=== PATIENT | female | born 1975 | race African-American/Black ===

== ENCOUNTER 2018-03-15 08:25 | Emergency (ER) | payer OTHER ==
[~2018-03-15] VITALS: Ht 165.1 cm; Wt 125.0 kg
[~2018-03-15 08:25] MED LIST: FERR1TAB45 PO; VITAD1000 PO
[2018-03-15] MEDS ORDERED: ACETAMINOPHEN 500 MG TABLET PO ONE (09:30)
[2018-03-15] MEDS ORDERED: BENZOCAINE/MENTHOL LOZENGE PO ONE (09:30)
[2018-03-15] MEDS ORDERED: BENZONATATE 100 MG CAPSULE PO ONE (09:30)
[2018-03-15] MEDS ORDERED: ALBUTEROL SULFATE HFA 90 MCG/PUFF 8 GM INHALER IH ONE (09:30)
[2018-03-15] MEDS ORDERED: AmLODIPine BESYLATE 5 MG TABLET PO ONE (09:30)
[2018-03-15 10:21] VITALS: BP 122/71
== END 2018-03-15 10:23 | disposition home or self-care (01) ==
LOC: EMS 09:09
DX: J06.9 Acute upper respiratory infection, unspecified (principal); J34.89 Other specified disorders of nose and nasal sinuses; R51 Headache; Z88.6 Allergy status to analgesic agent
CPT/HCPCS: 94640; J3535

== ENCOUNTER 2019-04-20 07:59 | Emergency (ER) | payer OTHER ==
[~2019-04-20] VITALS: Ht 165.1 cm; Wt 118.2 kg
[2019-04-20] MEDS ORDERED: SULF1TAB42 PO (08:21)
[2019-04-20 09:30] VITALS: BP 107/74
[2019-04-20] MEDS ORDERED: ALBUTEROL SULFATE HFA 90 MCG/PUFF 8 GM INHALER IH ONE (09:45)
[2019-04-20] MEDS ORDERED: AZITHROMYCIN 250 MG TABLET PO ONE (09:45)
[2019-04-20] MEDS ORDERED: PredniSONE 20 MG TABLET PO ONE (09:45)
== END 2019-04-20 10:28 | disposition home or self-care (01) ==
LOC: EMS 08:00
DX: J45.909 Unspecified asthma, uncomplicated (principal); Z88.8 Allergy status to other drugs, medicaments and biological substances
CPT/HCPCS: 71046; 94640; 99283; J7512; J3535

== ENCOUNTER 2020-07-03 18:09 | Emergency (ER) | payer OTHER ==
[~2020-07-03] VITALS: Ht 165.1 cm; Wt 140.9 kg
[~2020-07-03 18:09] MED LIST changes: -FERR1TAB45 PO; +SULF1TAB42 PO; -VITAD1000 PO
[2020-07-03 19:22] LABS: BASOPHILS % (AUTO) 0.3 % (0.0-2.0); EOSINOPHILS % (AUTO) 2.6 % (1.0-6.0); HEMATOCRIT 42.6 % (36-46); HEMOGLOBIN 13.7 g/dL (12.0-16.0); LYMPHOCYTES # (AUTO) 1.6 K/uL (1.0-4.8); LYMPHOCYTES % (AUTO) 23.2 % (22.0-44.0); MEAN CORPUSCULAR HEMOGLOBIN 29.7 pg (26.0-34.0); MEAN CORPUSCULAR HGB CONC 32.1 G/dL (31.0-37.0); MEAN CORPUSCULAR VOLUME 93 fL (80-100); MONOCYTES # (AUTO) 0.8 K/uL (0.1-1.0); MONOCYTES % (AUTO) 11.4 % (2.0-9.0); NEUTROPHILS # (AUTO) 4.2 K/uL (1.8-7.7); NEUTROPHILS % (AUTO) 62.5 % (40.0-70.0); PLATELET COUNT (AUTO) 304 K/uL (150-450); RED BLOOD CELL COUNT(AUTO) 4.59 MIL/uL (4.00-5.20); RED CELL DISTRIBUTION WIDTH 13.3 % (11.5-14.5)
[2020-07-03 19:28] LABS: APPEARANCE,URINE CLOUDY (CLEAR); BILIRUBIN,URINE NEGATIVE (NEGATIVE); GLUCOSE, URINE (UA) NEGATIVE (NEGATIVE); KETONES,URINE TRACE mg/dL (NEGATIVE); LEUKOCYTE ESTERASE ,URINE NEGATIVE (NEGATIVE); NITRATE,URINE NEGATIVE (NEGATIVE); OCCULT BLOOD,URINE NEGATIVE (NEGATIVE); PROTEIN,URINE NEGATIVE (NEGATIVE); UROBILINOGEN,URINE 0.2 mg/dL (<=1.0)
[2020-07-03 19:31] LABS: ANION GAP 3 mmol/L (8-16); CALCIUM, TOTAL 9.4 mg/dL (8.8-10.5); CARBON DIOXIDE 31 mmol/L (22-29); CHLORIDE 108 mmol/L (98-107); CREATININE 0.84 mg/dL (0.60-1.30); GLOMERULAR FILTR. RATE CALC > 60 mL/min (>60); GLUCOSE,RANDOM 99 mg/dL (70-110); POTASSIUM 3.9 mmol/L (3.5-5.1); SODIUM SERUM 142 mmol/L (136-145); UREA NITROGEN, BLOOD 8 mg/dL (7-18)
[2020-07-03 19:44] LABS: ALANINE AMINOTRANSFERASE 29 U/L (12-78); ALBUMIN 3.6 g/dL (3.4-5.0); ALKALINE PHOSPHATASE 94 U/L (46-116); ASPARTATE AMINOTRANSFERASE 24 U/L (15-37); BILIRUBIN,TOTAL 0.8 mg/dL (0.1-1.0); HCG,QUANTITATIVE < 1 mIU/mL (0-6); LIPASE 43 U/L (73-393); TOTAL PROTEIN, SERUM 7.4 g/dL (6.4-8.2)
[2020-07-03] MEDS ORDERED: ONDANSETRON HCL 4 MG/2 ML VIAL IVP ONE (20:30)
[2020-07-03] MEDS ORDERED: SODIUM CHLORIDE 0.9% 1,000 ML IV ONE (20:30)
[2020-07-03] MEDS ORDERED: DIPHENOXYLATE/ATROP 2.5-0.025 MG TABLET PO ONE (20:30)
[2020-07-03] MEDS ORDERED: ACETAMINOPHEN 500 MG TABLET PO ONE (20:30)
[2020-07-03 20:51] LABS: COVID AG,FIA SOURCE NASOPHARYNGEAL
[2020-07-03 21:31] VITALS: BP 126/79
== END 2020-07-03 22:10 | disposition home or self-care (01) ==
LOC: EMS 18:09
DX: K52.9 Noninfective gastroenteritis and colitis, unspecified (principal); Z20.822 Contact with and (suspected) exposure to COVID-19
CPT/HCPCS: 36415; 80053; 81003; 83690; 84702; 85025; 87426; 96361; 96374; 99283; J2405; J7030

== ENCOUNTER 2020-07-16 18:19 | Emergency (ER) | payer OTHER ==
[~2020-07-16] VITALS: Ht 165.1 cm; Wt 125.0 kg
[2020-07-16 21:43] VITALS: BP 140/89
[2020-07-16] MEDS ORDERED: ONDANSETRON HCL 4 MG/2 ML VIAL IVP ONE (23:15)
[2020-07-16] MEDS ORDERED: SODIUM CHLORIDE 0.9% 1,000 ML IV ONE (23:15)
[2020-07-16] MEDS ORDERED: MORPHINE SULFATE 2 MG/ML SYRINGE IVP ONE (23:15)
== END 2020-07-17 02:15 | disposition home or self-care (01) ==
LOC: EMS 18:21
DX: M25.561 Pain in right knee (principal); G89.29 Other chronic pain; Z88.6 Allergy status to analgesic agent
CPT/HCPCS: 99283

== ENCOUNTER 2023-04-05 10:49 | Emergency (ER) | payer OTHER ==
[~2023-04-05] VITALS: Ht 165.1 cm; Wt 95.5 kg
[2023-04-05 10:53] VITALS: TEMP 98
[2023-04-05] MEDS ORDERED: OXYC10TA59 PO (10:57)
[2023-04-05] MEDS ORDERED: AMLO-257 PO (10:57)
[2023-04-05] MEDS ORDERED: BACITRACIN 0.9 GM PACKET OINTMENT TP ONE (11:15)
[2023-04-05] MEDS ORDERED: BACI28.410 TP ×2 (12:17→12:29)
[2023-04-05 12:40] VITALS: BP 122/74; PULSE 80; RESP 16
== END 2023-04-05 12:54 | disposition home or self-care (01) ==
LOC: EMS 10:49
DX: S83.91XA Sprain of unspecified site of right knee, initial encounter (principal); S80.221A Blister (nonthermal), right knee, initial encounter; X58.XXXA Exposure to other specified factors, initial encounter; Y93.89 Activity, other specified; Y92.89 Other specified places as the place of occurrence of the external cause; Y99.8 Other external cause status
CPT/HCPCS: 99283

== ENCOUNTER 2024-11-22 21:14 | Emergency (ER) | payer OTHER ==
[~2024-11-22] VITALS: Ht 162.6 cm; Wt 127.3 kg
[~2024-11-22 21:14] MED LIST changes: +AMLO-257 PO; +BACI28.410 TP; +OXYC10TA59 PO; -SULF1TAB42 PO
[2024-11-22 21:18] VITALS: TEMP 97.5
[2024-11-22 22:46] LABS: PLATELET COUNT (AUTO) 302 K/uL (150-450); RED BLOOD CELL COUNT(AUTO) 4.04 MIL/uL (4.00-5.20); RED CELL DISTRIBUTION WIDTH 14.2 % (11.5-14.5); WHITE BLOOD COUNT (AUTO) 5.6 K/uL (4.5-11.0)
[2024-11-22 23:00] LABS: CALCIUM, TOTAL 8.6 mg/dL (8.8-10.5); CREATININE 0.79 mg/dL (0.60-1.30); GLOMERULAR FILTR. RATE CALC > 60 mL/min (>60); GLUCOSE,RANDOM 105 mg/dL (70-110); SODIUM SERUM 140 mmol/L (136-145); UREA NITROGEN, BLOOD 13 mg/dL (7-18)
[2024-11-23 01:03] VITALS: BP 118/79; PULSE 74; RESP 15; O2SAT 99
[2024-11-23] MEDS: CEPHALEXIN MONOHYDRATE 500 MG CAPSULE PO ONE (01:40)
[2024-11-23] MEDS ORDERED: CEPH-558 PO (01:40)
[2024-11-23] MEDS ORDERED: TRAM50TA5 PO (01:40)
== END 2024-11-23 01:56 | disposition home or self-care (01) ==
LOC: EMS 21:14
DX: L03.115 Cellulitis of right lower limb (principal); I10 Essential (primary) hypertension; Z88.6 Allergy status to analgesic agent; Z79.899 Other long term (current) drug therapy
CPT/HCPCS: 80048; 85025; 93970; 99284